=== PATIENT | female | born 1975 | race Caucasian/White ===

== ENCOUNTER 2024-11-22 09:57 | Outpatient (AMB) | payer BC, SELFPAY ==
--- NOTE | 2024-11-22 10:10 | A.OFFVIS_ITS ---
Intake Visit Reasons: 3m Allergies No Known Allergies Allergy (Verified 11/15/24 08:17) HPI Comments Details: 49 years old woman with chronic depression and anxiety was treated for a benign essential tremor. She is taking one propranalol a day and it is helping. No side effects. [facility] Medical History (Updated 11/22/24 @ 10:12 by Boyd Cueto MD) Benign essential tremor Review of Systems Const Details: Constitutional:?No fever, chills, fatigue, weight loss, or night sweats. HEENT:?No headache, vision changes, hearing loss, nasal congestion, sore throat. Neurological:?No dizziness, syncope, seizures, numbness, tingling, weakness, tremors, memory loss. Psychiatric:?No anxiety, depression, mood swings, sleep disturbance, or hallucinations. Endocrine:?No heat/cold intolerance, polydipsia, polyuria, or hair/skin changes. Hematologic/Lymphatic:?No easy bruising, bleeding, or lymphadenopathy. Integumentary (Skin):?No rash, lesions, itching, or color changes. ? Physical Exam Neuro Other: Mental Status: Alert and oriented to person, place, and time. Normal attention. Normal spontaneous speech, fluency, and comprehension. No obvious issues with mood and memory. Affect is appropriate. Cranial Nerves: CN II: Visual park full to confrontation, visual acuity intact. CN III, IV, : Pupils equal, round, reactive to light and accommodation. Extraocular movements are normal. CN V: Facial sensation is normal. CN VII: Facial movements symmetrical. CN VIII: Hearing intact to bedside conversation is normal. CN IX, X: Palate elevates symmetrically. CN XI: Shoulder shrug and head turn symmetrical. CN XII: Tongue midline without atrophy or fasciculations. Extrapyramidal: Full facial expressions and blinking. No rigidity. Movements are appropriate with no tremor or abnormality. Speech: Normal; no dysarthria or tremor. Assessment & Plan Assessment & Plan (1) Benign essential tremor: Code(s): G25.0 - Essential tremor Category: Medical Plan Impression: Benign essential tremor better with propranolol Recommendation: Propranolol 20 mg a day as needed or on regular basis Coding Level of Care Code Tele Est Pt Level 4 (08948) Diagnoses Benign essential tremor G25.0
--- OUTSIDE RECORDS SUMMARY | 2024-11-22 10:37 | XMS_ITS | Encounter Summary ---
Author Organization [facility] Address [address] [place] [address] [place] [phone] Phone Care Team Providers Care Environmental Compliance Specialist Name Role Phone Jo So MD Primary Care Provider Davion Degroot MD Unavailable [phone] Jimbo Mcgowan MD Unavailable [phone] Kaila Emanuel Primary Care Provider + Tameka Owusu Unavailable [phone] Encounter Details Date Type Department Care Team (Late st Contact Info) Description 05/23/2023 Procedure Pass [place] Admitting Dept - Virtual Department [address], [place] [id number] Social History Tobacco Use Types Packs/Day Years Used Date Smoking Tobacco: Never Smokeless Tobacco: Never Alcohol Use Standard Drinks/Week Comments Never 0 (1 standard drink = 0.6 oz pur e alcohol) Education Answer Date Recorded Are you interested in more education? Not on mina e 08/16/2022 Are you concerned about learning? Not on file 08/16/2022 No 08/16/2022 No 08/16/2022 Digital Access Answer Date Recorded No 09/11/2022 No 09/11/2022 Reliable internet access at home? Not on file 09/11/2022 Device with a working camera? Not on file Intimate Partner Violence Answer Date R ecorded Are you denied basic needs s uch as food, clothing, or medical care? No 05/23/2023 In the past 12 months have y ou been in a relationship with a person who hurts, threatens, or tries to control you? No 05/23/2023 Are you denied basic needs s uch as food, clothing, or medical care? No 05/23/2023 In the past 12 months have y ou been in a relationship with a person who hurts, threatens, or tries to control you? 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 Not on file Not on file Not on file documented as of this encounter Plan of Treatment Upcoming Encounters Date Type Department Care Team (Latest Contact Info) Description 11/25/2024 Procedure Pass [facility] Admitting Dept Virtual Department [address] [place] [phone] 11/25/2024 9:30 AM EDT Hospital Encounter [facility] Admitting Dept Virtual Department [address] [place] [address] Clarke Neville MD [address] [place] [phone] [email or web address] 11/25/2024 9:30 AM EDT - 11/25/2024 10:00 AM EDT Surgery [facility] Admitting Dept Virtual Department [address] [place] [phone] Clarke Neville MD [address] [place] [phone] [email or web address] COLONOSCOPY 11/26/2024 1:45 PM EDT Office Visit [facility] [address] [place] [phone] Enrique Wang MD [address] [place] [address] Orthopedics & Sports Medicine, [place] [address] [email or web address] Ajay Zavala, PARTS FACILITATOR [address] [place] [address] [email or web address] 12/03/2024 4:00 PM EDT Office Visit [address] [address] Enrique Wang MD [address] [place] [address] Orthopedics Sports [facility], [place] [address] [email or web address] Ajay Zavala, PARTS FACILITATOR [address] [place] [address] [email or web address] 12/08/2024 3:45 PM EDT Office Visit [address] [address] Enrique Wang MD [address] [place], [place] [address]s Sports [facility], [place] [address] [email or web address] Shayy [email or web address], PT [address] [place] [address] 01/06/2025 9:00 AM EDT Office Visit [facility] Orthopedics & Sports Medicine [address] [place] [address] Enrique Wang MD [address] [place] [address] Orthopedics Sports [facility], [place], [place] [phone] [email or web address] [email or web address] Procedures Name Priority Associated Diagnoses Date/Ti me COLONOSCOPY Hx of colonic polyps 11/25/2024 9:30 AM EDT documented as of this encounter Visit Diagnoses Not on filedocumented in this encounter Care Teams Environmental Compliance Specialist Relationship Specialty Start Date End Date Jo So MD [address] [place] [address] [place] [address] [email or web address] PCP - General Internal Medicine 01/25/20 05/13/24 Kaila Emanule PA [address] [place] [address] [email or web address] PCP - General Physician Services Manager 05/14/24 Davion Degroot MD [address] [place] [address] Primary Oncologist Hematology and Oncology 07/31/22 Jimbo Mcgowan MD [address] [place] [phone] [email or web address] Insurance Assigned Provider Internal Medicine 06/30/23 Tameka Owusu MBBS [address] [place] [id number] Medical Oncology 05/26/24 documented as of this encounter Additional Source Comments The information contained in this document represents components of the legal health record. It is not the complete legal health record.[email or web address]
== END 2024-11-22 10:19 | disposition home or self-care (01) ==
LOC: HO.HSM 09:58
PROVIDERS: PCP Internal Medicine; Visit Provider Psychiatry & Neurology Neurology
DX: G25.0 Essential tremor (principal)
CPT/HCPCS: 99214